=== PATIENT | female | born 1995 | race Caucasian/White ===

== ENCOUNTER 2019-08-21 16:52 | Emergency (ER) | payer BC ==
[~2019-08-21] VITALS: Ht 157.5 cm; Wt 49.9 kg
--- NOTE | 2019-08-21 17:49 | NUR ---
ED Nurse Note:urine sent to labs
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
[2019-08-21] MEDS ORDERED: MUPIROCIN15 GM TOPIC (18:04)
[2019-08-21] MEDS ORDERED: IBUPROFEN600 MG ORAL (18:04)
--- NOTE | 2019-08-21 18:10 | NUR ---
ER DISCHARGE NOTE:arm sling placed on left arm Patient is cleared to be discharged per ERMD, pt is aox4, on room air, with stable vital signs. pt was given dc and prescription instructions, pt was able to verbalize understanding, pt is able to ambulate with steady gait. pt took all belongings.
[2019-08-21 18:18] VITALS: BP 143/81
[2019-08-21 18:22] VITALS: BP 143/81
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
== END 2019-08-21 18:30 | disposition home or self-care (01) ==
LOC: EMR 17:04
DX: S40.212A Abrasion of left shoulder, initial encounter (principal); S50.312A Abrasion of left elbow, initial encounter; Z88.0 Allergy status to penicillin; Z88.8 Allergy status to other drugs, medicaments and biological substances; Z32.02 Encounter for pregnancy test, result negative; V49.9XXA Car occupant (driver) (passenger) injured in unspecified traffic accident, initial encounter; Y92.410 Unspecified street and highway as the place of occurrence of the external cause
CPT/HCPCS: 81025; 99284